=== PATIENT | female | born 1970 | race Caucasian/White ===

== ENCOUNTER 2017-07-18 16:44 | Emergency (ER) | payer OTHER ==
[2017-07-18 16:57] VITALS: TEMP 98.3; BMI 34.0
--- NOTE | 2017-07-18 17:49 | PDOC ---
History of Present Illness - General History Source: Patient - History of Present Illness Presenting Symptoms: Chest Pain Timing/Duration: reports: constant, changing over time Chest Pain Radiation: reports: arms <Cortez Quinones Last Filed: 07/18/17 19:00> <Alcon Dior - Last Filed: 07/19/17 02:01> - General Chief Complaint: Chest Pain Stated Complaint: CHEST PAIN Time Seen by Provider: 07/18/17 17:33 Past History - Past Medical History Asthma: Yes Cardiac Disorders: Yes (SVT) - Immunization History Immunization Up to Date: Yes - Suicide/Smoking/Psychosocial Hx Smoking Status: No Smoking History: Never smoked Have you smoked in the past 12 months: No Number of Cigarettes Smoked Daily: 0 Hx Alcohol Use: No Drug/Substance Use Hx: No Substance Use Type: None <Cortez Quinones Last Filed: 07/18/17 19:00> <Alcon Dior - Last Filed: 07/19/17 02:01> - Past Medical History Allergies/Adverse Reactions: Allergies Allergy/AdvReac Type Severity Reaction Status Date / Time No Known Allergies Allergy Verified 07/18/17 16:57 Home Medications: Ambulatory Orders Albuterol Sulfate Inhaler - [Ventolin HFA Inhaler -] 2 inh PO Q4H 05/12/16 Diltiazem Cd [Cardizem Cd -] 120 mg PO DAILY #30 cap.cd.24h 05/13/16 Cardiac Specific PMH - Complaint Specific PMHX Abdominal Aortic Aneurysm: No Angina: No Cardiac Arrhythmia: Yes (SVT) Cardiac Stent: No GERD: No Pacemaker: No Pulmonary Embolus: No Valvular Heart Disease: No Peripheral Vascular Disease: No <Cortez Quinones Last Filed: 07/18/17 19:00> Review of Systems - Review of Systems Constitutional: No: Chills, Fever Respiratory: Yes: Shortness of Breath. No: Wheezing Cardiac (ROS): Yes: Chest Pain. No: Lightheadedness, Palpitations, Syncope <Cortez Quinones Last Filed: 07/18/17 19:00> *Physical Exam - Physical Exam General Appearance: Yes: Appropriately Dressed. No: Apparent Distress HEENT: positive: Normal Voice Neck: positive: Supple Respiratory/Chest: positive: Lungs Clear, Normal Breath Sounds. negative: Respiratory Distress Cardiovascular: positive: Regular Rate, S1, S2 Gastrointestinal/Abdominal: positive: Soft Integumentary: positive: Dry, Warm Neurologic: positive: Fully Oriented, Alert, Normal Mood/Affect <Cortez Quinones - Last Filed: 07/18/17 19:00> - Vital Signs Last Vital Signs Temp Pulse Resp BP Pulse Ox 98.3 F 72 18 123/82 99 07/18/17 16:49 07/18/17 19:01 07/18/17 19:01 07/18/17 19:01 07/18/17 19:01 Heart Score/ECG Review - History History: Slightly suspicious - Electrocardiogram EKG: Normal - Age Age: 45-65 - Risk Factors Based on the list above the patient has:: No risk factors known <Cortez Quinones - Last Filed: 07/18/17 19:00> - History History: Slightly suspicious - Electrocardiogram EKG: Normal - Age Age: 45-65 - Risk Factors Risk Factors Heart Score: No Hx Hypercholesterolemia, No Hx Hypertension, No Hx Diabetes, No Smoking History, No Positive family hx of cardiac disease, No Hx Obesity Based on the list above the patient has:: No risk factors known - Troponin Troponin: </= normal limit - Score Heart Score - Total: 1 <Alcon Dior - Last Filed: 07/19/17 02:01> - ECG Intrepretation Comment:: 07/18/17 17:54 Twelve-lead EKG was performed and reviewed by me. There is normal sinus rhythm with a normal rate. The axis is normal. The intervals are normal. There are no ST or T wave abnormalities. Impression: Normal twelve-lead EKG (Cortez Quinones) ED Treatment Course - LABORATORY CBC & Chemistry Diagram: 07/18/17 17:58 07/18/17 17:58 <Cortez Quinones - Last Filed: 07/18/17 19:00> - LABORATORY CBC & Chemistry Diagram: 07/18/17 17:58 07/18/17 17:58 <Alcon Dior - Last Filed: 07/19/17 02:01> - ADDITIONAL ORDERS Additional order review: Laboratory Results 07/19/17 07/18/17 07/18/17 00:16 23:59 17:58 Sodium Potassium Chloride Carbon Dioxide Anion Gap BUN Creatinine Creat Clearance w eGFR Random Glucose Calcium Total Bilirubin AST ALT Alkaline Phosphatase Creatine Kinase 79 Troponin I < 0.02 Total Protein Albumin Serum , Qual Negative Urine Color Ltyellow Urine Appearance Clear Urine pH 5.0 Urine Protein Negative Urine Glucose (UA) Negative Urine Ketones Negative Urine Blood Negative Urine Nitrite Negative Urine Bilirubin Negative Urine Urobilinogen Negative 07/18/17 17:58 Sodium 140 Potassium 3.5 Chloride 103 Carbon Dioxide 27 Anion Gap 10 BUN 17 D Creatinine 0.7 Creat Clearance w eGFR > 60 Random Glucose 123 H D Calcium 8.6 Total Bilirubin 0.5 AST 10 L D ALT 27 Alkaline Phosphatase 96 Creatine Kinase 92 Troponin I < 0.02 Total Protein 7.1 Albumin 3.5 Serum , Qual Urine Color Urine Appearance Urine pH Urine Protein Urine Glucose (UA) Urine Ketones Urine Blood Urine Nitrite Urine Bilirubin Urine Urobilinogen 07/18/17 17:58 RBC 4.30 MCV 87.5 MCHC 34.6 RDW 13.6 MPV 7.3 L D Neutrophils % 60.1 Lymphocytes % 30.4 Monocytes % 7.9 Eosinophils % 1.1 Basophils % 0.5 Medical Decision Making <Cortez Quinones - Last Filed: 07/18/17 19:00> <Alcon Dior - Last Filed: 07/19/17 02:01> - Medical Decision Making 07/18/17 17:41 47 yo F, h/o asthma, SVT, p/w chest pain. Pt states while driving approximately one hour ago, all of a sudden her entire body "got hot and sweaty" and at some point developed throbbing pain to left chest that radiated to left arm. States symptoms have since improved. Also complaining of feeling intermittently short of breath over the past 2 weeks not affected by position, and was told by her PMD that it was probably her asthma and started on prednisone taper which patient already completed. No SOB at this time. Denies wheezing, cough, f/c, n/ v. Patient has no known history of CAD and states stress test May 2016 was normal. No obvious RFs for DVT/PE See exam CP today Since improved Neg stress test 1 year ago R/o ACS, less likely PE as no obvious RF, unlikely dissection Stable and well alexandra in ED w/ unremarkable exam -ekg -cxr -will r/o w/ serial trops as per d/w Dr Greenberg -given low heart score, anticipate dc from ED if w/u neg 07/18/17 18:20 WBC 15, m/l 2/2 recent prednisone use. CXR pending though low suspicious for infection at this time 07/18/17 18:21 07/18/17 18:38 07/18/17 19:00 Pt signed out to OLMAN Dior pending ED Obs listing/serial trop at midnight (Cortez Quinones) *DC/Admit/Observation/Transfer <Cortez Quinones - Last Filed: 07/18/17 19:00> - Discharge Dispostion Admit: No <Alcon Doir - Last Filed: 07/19/17 02:01> Diagnosis at time of Disposition: Atypical chest pain - Discharge Dispostion Disposition: HOME Condition at time of disposition: Improved - Referrals Referrals: Bart Martinez MD [Primary Care Provider] - Anant Rey MD [Staff Physician] - - Patient Instructions Printed Discharge Instructions: DI for Atypical Chest Pain Additional Instructions: Follow up with Dr. Rey (Pulmonary) this week for further evaluation. Also, follow up with your primary care provider. Return if symptoms worsen or any concerns for further evaluation. Continue your current medications as prescribed. Print Language: TURKMEN
[2017-07-18 18:05] LABS: BASOPHIL 0.5 % (0-2.0); EOSINOPHIL 1.1 % (0-4.5); MCH 30.3 pg (25.7-33.7); MCHC 34.6 g/dl (32.0-36.0); MEAN CELL VOLUME 87.5 fl (80-96); MEAN PLT VOLUME 7.3 fl (7.5-11.1); NEUTROPHILS 60.1 % (42.8-82.8); PLATELET COUNT 366 K/MM3 (134-434); RDW 13.6 % (11.6-15.6)
[2017-07-18 18:27] LABS: ALBUMIN 3.5 g/dl (3.4-5.0); ANION GAP 10 (8-16); BILIRUBIN,TOTAL 0.5 mg/dL (0.2-1.0); CALCIUM 8.6 mg/dL (8.5-10.1); CO2 27 mmol/L (21-32); CREATININE 0.7 mg/dL (0.55-1.02); GLUCOSE,RANDOM 123 mg/dL (74-106); SGOT/AST 10 U/L (15-37); SGPT/ALT 27 U/L (12-78); TOT PROT 7.1 g/dl (6.4-8.2)
[2017-07-18 18:30] LABS: ALK PHOS 96 U/L (45-117); CPK 92 IU/L (26-192); TROPONIN I < 0.02 ng/ml (0.00-0.05)
--- NOTE | 2017-07-18 18:35 | PDOC ---
*Physical Exam - Vital Signs Last Vital Signs Temp Pulse Resp BP Pulse Ox 98.3 F 91 H 20 150/76 98 07/18/17 16:49 07/18/17 16:49 07/18/17 16:49 07/18/17 16:49 07/18/17 16:49 - Physical Exam Comments: 07/18/17 18:31 Vital signs normal, heart rate regular and and 80s well-appearing, obese s1s2 rrr, no m ctab no edema/calf ttp neuro intact Heart Score/ECG Review - History History: Slightly suspicious - Electrocardiogram EKG: Normal - Age Age: 45-65 - Risk Factors Based on the list above the patient has:: 1-2 risk factors - Troponin Troponin: </= normal limit - Score Heart Score - Total: 2 #1 General ECG Interpretation: Sinus Rhythm, Normal Rate, Normal Intervals (qtc 422 ), No acute ischemic changes ED Treatment Course - LABORATORY CBC & Chemistry Diagram: 07/18/17 17:58 07/18/17 17:58 - ADDITIONAL ORDERS Additional order review: Laboratory Results 07/18/17 17:58 Serum , Qual Negative 07/18/17 17:58 RBC 4.30 MCV 87.5 MCHC 34.6 RDW 13.6 MPV 7.3 L D Neutrophils % 60.1 Lymphocytes % 30.4 Monocytes % 7.9 Eosinophils % 1.1 Basophils % 0.5 Medical Decision Making - Medical Decision Making 07/18/17 18:33 Patient seen and evaluated with the nurse practitioner. I agree with the overall evaluation, assessment, and management with the following summary of visit: 47-year-old female with history of asthma but no other ACS risk factors other than obesity presents with episode of heat flash/lightheadedness while driving today, associated with some chest discomfort. Episode lasted 2-3 minutes, then resolved. Some residual intermittent and atypical left chest discomfort since then, lasting only seconds at a time, not exertional or associated with any dyspnea. Presents for evaluation. Has history of SVT and maintained on cardia, normal stress test August 2016. At baseline has on limited exercise tolerance, drives a bus for a living, has had some asthma exacerbation over the last 2 weeks treated with methylprednisolone completed 2 days ago, only slightly. Vital signs normal. Exam is normal. EKG is nonischemic, intervals are normal. 47-year-old female presents with brief episode of lightheadedness and chest discomfort. Atypical for ACS, question recurrence of her SVT, question near syncopal episode. Well-appearing now without acute complaints or findings. Heart score is 2, only positive for obesity and age over 45. Clinically rules out for PE. We'll check troponin 2, discharged to PMD/cardiology follow-up if negative. Could benefit from echo/Holter monitoring especially if symptoms persist. *DC/Admit/Observation/Transfer Diagnosis at time of Disposition: Chest pain Qualifiers: Chest pain type: unspecified Qualified Code(s): R07.9 - Chest pain, unspecified - Referrals Referrals: Bart Martinez MD [Primary Care Provider] - - Patient Instructions - Post Discharge Activity
[2017-07-19 00:24] LABS: URINE APPEARANCE CLEAR; URINE BILIRUBIN NEGATIVE (NEGATIVE); URINE BLOOD NEGATIVE (NEGATIVE); URINE COLOR LTYELLOW; URINE GLUCOSE (UA) NEGATIVE (NEGATIVE); URINE KETONE NEGATIVE (NEGATIVE); URINE NITRITE NEGATIVE (NEGATIVE); URINE PROTEIN NEGATIVE (NEGATIVE); URINE UROBILINOGEN NEGATIVE mg/dL (0.2-1.0)
[2017-07-19 00:44] LABS: CPK 79 IU/L (26-192)
[2017-07-19 00:45] LABS: TROPONIN I < 0.02 ng/ml (0.00-0.05)
[2017-07-19 02:24] VITALS: BP 132/83; PULSE 77
--- NOTE | 2017-07-19 10:50 | EKG ---
Test Reason : Blood Pressure : / mmHG Vent. Rate : 076 BPM Atrial Rate : 076 BPM P-R Int : 132 ms QRS Dur : 090 ms QT Int : 380 ms P-R-T Axes : 042 031 043 degrees QTc Int : 427 ms NORMAL SINUS RHYTHM NORMAL ECG WHEN COMPARED WITH ECG OF 22-SEP-2016 20:55, NO SIGNIFICANT CHANGE WAS FOUND Confirmed by ELFEGO ZUNIGA MD ([id number]) on 07/19/2017 10:49:58 AM Referred By: Confirmed By:ELFEGO ZUNIGA MD
[2017-07-19 14:28] LABS: URINE LEUK ESTERASE Negative (NEGATIVE)
--- NOTE | 2017-07-20 10:17 | EKG ---
Test Reason : Blood Pressure : / mmHG Vent. Rate : 085 BPM Atrial Rate : 085 BPM P-R Int : 128 ms QRS Dur : 094 ms QT Int : 358 ms P-R-T Axes : 059 052 045 degrees QTc Int : 426 ms NORMAL SINUS RHYTHM NORMAL ECG WHEN COMPARED WITH ECG OF 22-SEP-2016 20:55, NO SIGNIFICANT CHANGE WAS FOUND Confirmed by SANDRA MARRUFO MD ([id number]) on 07/20/2017 10:16:52 AM Referred By: Confirmed By:SANDRA MARRUFO MD
== END 2017-07-19 02:24 | disposition home or self-care (01) ==
LOC: JER 16:44
DX: R07.89 Other chest pain (principal); Z86.79 Personal history of other diseases of the circulatory system
CPT/HCPCS: 36415; 71010-TC; 80053; 81003; 82550; 84484; 84703; 85025; 93005; 93010; 99285-25

== ENCOUNTER 2020-12-27 03:39 | Inpatient (IN) | payer OTHER ==
[2020-12-27] MEDS ORDERED: ASPIRIN 81 MG CHEWABLE TABLETS PO ONE (04:19)
[2020-12-27 04:37] LABS: BASO % 0.6 % (0-2.0); EOS % 1.7 % (0-4.5); HEMATOCRIT 39.5 % (32.4-45.2); HEMOGLOBIN 13.3 GM/dL (10.7-15.3); LYMPH % 21.7 % (8-40); MCH 30.5 pg (25.7-33.7); MCHC 33.7 g/dl (32.0-36.0); MEAN CELL VOLUME 90.7 fl (80-96); MEAN PLT VOLUME 8.2 fl (7.5-11.1); MONO % 9.1 % (3.8-10.2); NEUT % 66.9 % (42.8-82.8); PLATELET COUNT 305 K/MM3 (134-434); RBC 4.36 M/mm3 (3.60-5.2); RDW 13.8 % (11.6-15.6); WHITE BLOOD COUNT 9.9 K/mm3 (4.0-10.0)
[2020-12-27] MEDS ORDERED: LACTATED RINGERS SOLUTION 1000 ML INFUS.BAG IV ONE (04:46)
[2020-12-27 04:47] LABS: CHLORIDE 105 mmol/L (98-107); POTASSIUM 3.7 mmol/L (3.5-5.1); SODIUM 144 mmol/L (136-145)
[2020-12-27] MEDS ORDERED: dilTIAZem HCL 50 MG/10 ML - 10 ML VIAL IVPUSH ONE (04:47)
[2020-12-27 04:50] LABS: ALBUMIN 3.8 g/dl (3.4-5.0); ANION GAP 11 MMOL/L (8-16); BLOOD UREA NITROGEN 11.2 mg/dL (7-18); CO2 28 mmol/L (21-32); GLUCOSE,RANDOM 112 mg/dL (74-106)
[2020-12-27 04:53] LABS: CREATININE 0.6 mg/dL (0.55-1.3); SGOT/AST 18 U/L (15-37); SGPT/ALT 26 U/L (13-61)
[2020-12-27 04:55] LABS: BILIRUBIN,TOTAL 0.9 mg/dL (0.2-1)
[2020-12-27 04:56] LABS: ALK PHOS 84 U/L (45-117)
[2020-12-27] MEDS ORDERED: ASPIRIN 81 MG CHEWABLE TABLETS ONE (04:59)
[2020-12-27] MEDS ORDERED: dilTIAZem HCL 125 MG/25 ML - 25 ML VIAL ONE (05:00)
[2020-12-27] MEDS ORDERED: dilTIAZem HCL 60 MG TABLET PO ONE (05:21)
[2020-12-27] MEDS ORDERED: dilTIAZem HCL 60 MG TABLET ONE ×2 (05:26→20:34)
[2020-12-27] MEDS ORDERED: ENOXAPARIN NA (PORCINE) 100 MG/1 ML DISP.SYRIN SQ ONE ×2 (05:35→05:36)
[2020-12-27 06:09] LABS: N-TERMINAL BNP 24.3 pg/ml (5-125)
[2020-12-27 07:23] LABS: MAGNESIUM 2.2 mg/dL (1.8-2.4)
[2020-12-27] MEDS ORDERED: METOPROLOL TARTRATE 5 MG/5 ML VIAL IVPB PRN (11:56)
[2020-12-28 02:57] VITALS: BMI 36.7
[2020-12-28 07:53] LABS: BASO % 0.6 % (0-2.0); EOS % 1.5 % (0-4.5); HEMATOCRIT 35.2 % (32.4-45.2); HEMOGLOBIN 12.3 GM/dL (10.7-15.3); LYMPH % 27.7 % (8-40); MCH 31.4 pg (25.7-33.7); MEAN CELL VOLUME 89.7 fl (80-96); MEAN PLT VOLUME 8.5 fl (7.5-11.1); MONO % 13.7 % (3.8-10.2); NEUT % 56.5 % (42.8-82.8); PLATELET COUNT 280 K/MM3 (134-434); RBC 3.92 M/mm3 (3.60-5.2); RDW 13.7 % (11.6-15.6); WHITE BLOOD COUNT 7.7 K/mm3 (4.0-10.0)
[2020-12-28 07:59] LABS: POTASSIUM 3.8 mmol/L (3.5-5.1)
[2020-12-28 08:06] LABS: ALBUMIN 3.6 g/dl (3.4-5.0); CALCIUM 9.1 mg/dL (8.5-10.1)
[2020-12-28 08:07] LABS: BLOOD UREA NITROGEN 9.6 mg/dL (7-18)
[2020-12-28 08:09] LABS: TOT PROT 7.1 g/dl (6.4-8.2)
[2020-12-28 08:10] LABS: CREATININE 0.6 mg/dL (0.55-1.3)
[2020-12-28] MEDS: ASPIRIN 81 MG CHEWABLE TABLETS PO SCH (10:00)
[2020-12-29] MEDS: ASPIRIN 81 MG CHEWABLE TABLETS PO SCH (09:10)
[2020-12-29 14:18] VITALS: BP 135/79; PULSE 86; TEMP 97
== END 2020-12-29 14:40 | disposition home or self-care (01) | DRG 310 ==
LOC: JER 03:39 → JERBED 06:04 → J4S 12-28 02:43
PROVIDERS: ADMIT Internal Medicine; ATTEND Internal Medicine
DX: I48.91 Unspecified atrial fibrillation (principal); R00.2 Palpitations; J45.909 Unspecified asthma, uncomplicated; E66.9 Obesity, unspecified; Z68.36 Body mass index [BMI] 36.0-36.9, adult
CPT/HCPCS: 36415; 71046-TC-FY; 71275-TC; 80053; 80061; 82550; 83036; 83721; 83735; 83880; 84439; 84443; 84484; 85025; 85379; 93005; 93010; 99285-25; C9803; Q9967; U0003; U0005

== ENCOUNTER 2021-09-25 11:28 | Emergency (ER) | payer OTHER ==
[2021-09-25 11:42] VITALS: BP 140/75; PULSE 78; TEMP 98.1; BMI 34.4
[2021-09-25] MEDS ORDERED: LOPERAMIDE HCL 1 MG/5 ML UNIT DOSE CUP PO ONE (12:14)
[2021-09-25] MEDS ORDERED: LOPERAMIDE HCL 2 MG CAPSULE ONE (12:22)
[2021-09-25 13:07] LABS: ALBUMIN 3.8 g/dl (3.4-5.0); BILIRUBIN,TOTAL 1.3 mg/dl (0.2-1); CALCIUM 8.9 mg/dl (8.5-10); CREATININE 0.5 mg/dl (0.55-1.3); TOT PROT 7.2 g/dl (6.4-8.2)
[2021-09-25 13:41] LABS: EPITHELIAL CELLS FEW /hpf
== END 2021-09-25 13:59 | disposition home or self-care (01) ==
LOC: FER 11:28
DX: A09 Infectious gastroenteritis and colitis, unspecified (principal)
CPT/HCPCS: 36415; 80053; 81003; 81015; 99283-25

== ENCOUNTER 2023-04-21 20:07 | Emergency (ER) | payer OTHER ==
[2023-04-21 20:15] VITALS: BP 140/78; PULSE 96; RESP 16; TEMP 98.5; BMI 33.6
[2023-04-21] MEDS ORDERED: methylPREDNISolone NA SUCC 125 MG/2 ML VIAL IVPB ONE (20:24)
[2023-04-21] MEDS ORDERED: methylPREDNISolone NA SUCC 125 MG/2 ML VIAL ONE (20:31)
[2023-04-21] MEDS ORDERED: methylPREDNISolone NA SUCC 125 MG/2 ML VIAL IVPUSH ONE (20:40)
== END 2023-04-21 21:24 | disposition home or self-care (01) ==
LOC: FER 20:07
PROC: 3E033GC Introduction of Other Therapeutic Substance into Peripheral Vein, Percutaneous Approach (ICD-10-PCS; principal; 2023-04-21)
PROC: 3E033GC Introduction of Other Therapeutic Substance into Peripheral Vein, Percutaneous Approach (ICD-10-PCS; 2023-04-21)
DX: L29.9 Pruritus, unspecified (principal); L50.9 Urticaria, unspecified; R22.0 Localized swelling, mass and lump, head; R22.33 Localized swelling, mass and lump, upper limb, bilateral; L53.9 Erythematous condition, unspecified
CPT/HCPCS: 99284-25

== ENCOUNTER 2023-09-23 04:06 | Emergency (ER) | payer OTHER ==
[2023-09-23 04:19] VITALS: BMI 36.8
[2023-09-23] MEDS ORDERED: SODIUM CHLORIDE 0.9% 500 ML INFUS.BAG IV ONE (05:01)
[2023-09-23 05:17] LABS: BASO % 0.7 % (0-2.0); EOS % 3.4 % (0-4.5); HEMATOCRIT 38.2 % (32.4-45.2); HEMOGLOBIN 12.9 GM/dL (10.7-15.3); LYMPH % 29.3 % (8-40); MCHC 33.6 g/dl (32.0-36.0); MEAN CELL VOLUME 89.2 fl (80-96); MEAN PLT VOLUME 7.9 fl (7.5-11.1); MONO % 9.1 % (3.8-10.2); NEUT % 57.5 % (42.8-82.8); PLATELET COUNT 302 10^3/uL (134-434); RBC 4.28 M/mm3 (3.60-5.2); RDW 13.7 % (11.6-15.6); WHITE BLOOD COUNT 8.1 K/mm3 (4.0-10.0)
[2023-09-23 05:24] LABS: POTASSIUM 3.5 mmol/L (3.5-5.1)
[2023-09-23 05:26] LABS: ALBUMIN 3.5 g/dl (3.4-5.0); BLOOD UREA NITROGEN 7.4 mg/dL (7-18); CALCIUM 9.3 mg/dL (8.5-10.1); MAGNESIUM 1.6 mg/dL (1.8-2.4)
[2023-09-23 05:30] LABS: CREATININE 0.7 mg/dL (0.55-1.3)
[2023-09-23 05:31] LABS: BILIRUBIN,TOTAL 0.6 mg/dL (0.2-1); TOT PROT 7.3 g/dl (6.4-8.2)
[2023-09-23] MEDS ORDERED: MAGNESIUM SULF 50% (8.12 MEQ/2 ML-1 GM VIAL) IVPB ONE (05:45)
[2023-09-23] MEDS ORDERED: MAGNESIUM 1GM/D5W - 1 GM/100 ML IVPB IVPB ONE (06:32)
[2023-09-23 08:49] VITALS: BP 131/88; PULSE 97; RESP 15; TEMP 97.8
== END 2023-09-23 08:55 | disposition home or self-care (01) ==
LOC: JER 04:06
PROC: 3E033GC Introduction of Other Therapeutic Substance into Peripheral Vein, Percutaneous Approach (ICD-10-PCS; principal; 2023-09-23)
DX: R00.2 Palpitations (principal); R07.9 Chest pain, unspecified; Z20.822 Contact with and (suspected) exposure to COVID-19
CPT/HCPCS: 0241U-QW; 36415; 71045-TC-FY; 71275-TC; 80053; 83735; 84443; 84484; 85025; 93005; 93010; 99284-25; Q9967